=== PATIENT | female | born 1995 | race African-American/Black ===

== ENCOUNTER 2017-08-23 03:34 | Outpatient (CLI) | payer MEDICAID ==
[2017-12-02 15:00] VITALS: BMI 43.2
== END 2017-08-23 04:55 | disposition home or self-care (01) ==
LOC: D.LDO 03:34
DX: O26.892 Other specified pregnancy related conditions, second trimester (principal); Z3A.27 27 weeks gestation of pregnancy; R10.9 Unspecified abdominal pain

== ENCOUNTER → 2017-09-29 16:22 | Outpatient (CLI) | payer MEDICAID ==
[~2017-09-29 16:22] MED LIST: BACTRIM DS TABL1 TAB PO; HYDROCODONE-APA1 TAB PO; IBUPROFEN600 MG PO; PERCOCET 10/3251 TA1 PO; PRENATAL COMPLE1 TAB PO
[2017-12-02 15:00] VITALS: BMI 43.2
== END | disposition home or self-care (01) ==
LOC: D.LDO 16:22
DX: O24.419 Gestational diabetes mellitus in pregnancy, unspecified control (principal); Z3A.32 32 weeks gestation of pregnancy

== ENCOUNTER → 2017-10-07 12:30 | Outpatient (CLI) | payer MEDICAID ==
[2017-12-02 15:00] VITALS: BMI 43.2
== END | disposition home or self-care (01) ==
LOC: D.LDO 12:30
DX: O24.419 Gestational diabetes mellitus in pregnancy, unspecified control (principal); Z3A.33 33 weeks gestation of pregnancy

== ENCOUNTER → 2017-10-09 13:25 | Outpatient (CLI) | payer MEDICAID ==
[2017-12-02 15:00] VITALS: BMI 43.2
== END | disposition home or self-care (01) ==
LOC: D.LDO 13:25
DX: O24.913 Unspecified diabetes mellitus in pregnancy, third trimester (principal); Z3A.33 33 weeks gestation of pregnancy

== ENCOUNTER → 2017-10-13 13:47 | Outpatient (CLI) | payer MEDICAID ==
[2017-12-02 15:00] VITALS: BMI 43.2
== END | disposition home or self-care (01) ==
LOC: D.LDO 13:47
DX: O24.419 Gestational diabetes mellitus in pregnancy, unspecified control (principal); Z3A.34 34 weeks gestation of pregnancy

== ENCOUNTER → 2017-10-15 12:31 | Outpatient (CLI) | payer MEDICAID ==
[2017-12-02 15:00] VITALS: BMI 43.2
== END | disposition home or self-care (01) ==
LOC: D.LDO 12:31
DX: O24.419 Gestational diabetes mellitus in pregnancy, unspecified control (principal); Z3A.34 34 weeks gestation of pregnancy

== ENCOUNTER → 2017-10-19 16:53 | Outpatient (CLI) | payer MEDICAID ==
[2017-12-02 15:00] VITALS: BMI 43.2
== END | disposition home or self-care (01) ==
LOC: D.LDO 16:53 → D.ER 16:53
DX: O26.893 Other specified pregnancy related conditions, third trimester (principal); Z3A.35 35 weeks gestation of pregnancy

== ENCOUNTER → 2017-10-20 16:34 | Outpatient (CLI) | payer MEDICAID ==
[2017-12-02 15:00] VITALS: BMI 43.2
== END | disposition home or self-care (01) ==
LOC: D.LDO 16:34
DX: O24.419 Gestational diabetes mellitus in pregnancy, unspecified control (principal); Z3A.35 35 weeks gestation of pregnancy

== ENCOUNTER → 2017-10-23 10:18 | Outpatient (CLI) | payer MEDICAID ==
[2017-12-02 15:00] VITALS: BMI 43.2
== END | disposition home or self-care (01) ==
LOC: D.LDO 10:18
DX: O24.419 Gestational diabetes mellitus in pregnancy, unspecified control (principal); Z3A.35 35 weeks gestation of pregnancy

== ENCOUNTER → 2017-10-27 10:19 | Outpatient (CLI) | payer MEDICAID ==
[2017-12-02 15:00] VITALS: BMI 43.2
== END | disposition home or self-care (01) ==
LOC: D.LDO 10:19
DX: O24.419 Gestational diabetes mellitus in pregnancy, unspecified control (principal); Z3A.36 36 weeks gestation of pregnancy

== ENCOUNTER → 2017-10-30 12:58 | Outpatient (CLI) | payer MEDICAID ==
[2017-12-02 15:00] VITALS: BMI 43.2
== END | disposition home or self-care (01) ==
LOC: D.LDO 12:58
DX: O24.419 Gestational diabetes mellitus in pregnancy, unspecified control (principal); Z3A.36 36 weeks gestation of pregnancy

== ENCOUNTER → 2017-11-03 14:40 | Outpatient (CLI) | payer MEDICAID ==
[2017-12-02 15:00] VITALS: BMI 43.2
== END | disposition home or self-care (01) ==
LOC: D.LDO 14:40
DX: O24.419 Gestational diabetes mellitus in pregnancy, unspecified control (principal); Z3A.37 37 weeks gestation of pregnancy

== ENCOUNTER → 2017-11-05 15:15 | Outpatient (CLI) | payer MEDICAID ==
[2017-12-02 15:00] VITALS: BMI 43.2
== END | disposition home or self-care (01) ==
LOC: D.LDO 15:15
DX: O24.419 Gestational diabetes mellitus in pregnancy, unspecified control (principal); Z3A.37 37 weeks gestation of pregnancy

== ENCOUNTER → 2017-11-06 14:52 | Outpatient (CLI) | payer MEDICAID ==
[2017-12-02 15:00] VITALS: BMI 43.2
== END | disposition home or self-care (01) ==
LOC: D.LDO 14:52
DX: O24.419 Gestational diabetes mellitus in pregnancy, unspecified control (principal); Z3A.37 37 weeks gestation of pregnancy

== ENCOUNTER → 2017-11-10 13:37 | Outpatient (CLI) | payer MEDICAID ==
[2017-12-02 15:00] VITALS: BMI 43.2
== END | disposition home or self-care (01) ==
LOC: D.LDO 13:37
DX: O26.893 Other specified pregnancy related conditions, third trimester (principal); Z3A.38 38 weeks gestation of pregnancy

== ENCOUNTER → 2017-11-13 14:00 | Outpatient (CLI) | payer MEDICAID ==
[2017-12-02 15:00] VITALS: BMI 43.2
== END | disposition home or self-care (01) ==
LOC: D.LDO 14:00
DX: O24.419 Gestational diabetes mellitus in pregnancy, unspecified control (principal); O36.8130 Decreased fetal movements, third trimester, not applicable or unspecified; Z3A.38 38 weeks gestation of pregnancy

== ENCOUNTER 2017-11-16 04:12 | Inpatient (IN) | payer MEDICAID ==
[2017-11-16] VITALS (9 sets, daily range): BP systolic 108–128; BP diastolic 56–64; Ht 175.3 cm; Wt 147.9 kg
[~2017-11-16] VITALS: Ht 175.3 cm; Wt 147.9 kg
[2017-11-16] MEDS ORDERED: PRENATAL COMPLE1 TAB PO (04:30)
[2017-11-16 05:47] LABS: HEMATOCRIT 32.5 % (36.0-48.0); HEMOGLOBIN 9.9 g/dL (12-16); MCH 23.9 pg (26.0-34.0); MCHC 30.5 g/dL (31.0-37.0); MCV 78.3 fL (80.0-100.0); MEAN PLATELET VOLUME 11.2 fL (7.4-10.4); RBC 4.15 10x6/uL (4.00-5.40); RDW 16.2 % (11.5-14.5); WBC 5.9 10x3/uL (4.8-10.8)
[2017-11-16 06:25] LABS: APPEARANCE SLT CLOUDY (CLEAR); BACTERIA MODERATE /hpf (NONE SEEN); BILIRUBIN NEGATIVE (NEGATIVE); COLOR YELLOW (YELLOW); EPITHELIAL CELLS 0-5 /hpf (0-5); GLUCOSE NEGATIVE (NEGATIVE); KETONE NEGATIVE (NEGATIVE); MUCUS >1+ /lpf (NONE SEEN); NITRITE NEGATIVE (NEGATIVE); PROTEIN NEGATIVE (NEGATIVE); RED CELLS - URINE 0-5 /hpf (0-5); SPECIFIC GRAVITY 1.015 (1.005-1.020)
[2017-11-16 17:21] LABS: BASOPHILS 0 % (0-2); EOSINOPHILS 0.1 % (0-7); HEMATOCRIT 30.4 % (36.0-48.0); HEMOGLOBIN 9.1 g/dL (12-16); IMMATURE GRANULOCYTES 0.1 % (0-5); MCH 23.5 pg (26.0-34.0); MCHC 29.9 g/dL (31.0-37.0); MCV 78.4 fL (80.0-100.0); MEAN PLATELET VOLUME 11.3 fL (7.4-10.4); MONOCYTES 7.5 % (2-11); NEUTROPHILS 76.3 % (40-80); PLATELET COUNT 157 10x3/uL (130-400); RBC 3.88 10x6/uL (4.00-5.40); RDW 15.8 % (11.5-14.5); WBC 7.2 10x3/uL (4.8-10.8)
[2017-11-17 06:52] LABS: BASOPHILS 0 % (0-2); EOSINOPHILS 0.2 % (0-7); HEMATOCRIT 28.7 % (36.0-48.0); HEMOGLOBIN 8.6 g/dL (12-16); IMMATURE GRANULOCYTES 0.2 % (0-5); LYMPHOCYTES 14.6 % (15-50); MCH 23.6 pg (26.0-34.0); MCV 78.8 fL (80.0-100.0); MEAN PLATELET VOLUME 10.2 fL (7.4-10.4); MONOCYTES 6.8 % (2-11); NEUTROPHILS 78.2 % (40-80); PLATELET COUNT 127 10x3/uL (130-400); RBC 3.64 10x6/uL (4.00-5.40); WBC 6.2 10x3/uL (4.8-10.8)
[2017-11-17 07:27] LABS: RAPID PLASMA REAGIN Non Reactive (Non Reactive)
[2017-11-17 08:30] VITALS: BP 118/70
[2017-11-17 19:20] VITALS: BP 118/61
[2017-11-17 23:09] VITALS: BP 119/53
[2017-11-18 03:25] VITALS: BP 121/77
[2017-11-18 07:48] VITALS: BP 122/64
[2017-11-18] MEDS ORDERED: PERCOCET 10/3251 TA1 PO (09:47)
[2017-11-18] MEDS ORDERED: IBUPROFEN600 MG PO (09:48)
== END 2017-11-18 13:40 | disposition home or self-care (01) | DRG 766 ==
LOC: D.LD 04:12
PROVIDERS: Obstetrics & Gynecology
PROC: 10D00Z1 Extraction of Products of Conception, Low, Open Approach (ICD-10-PCS; 2017-11-16)
PROC: 10907ZC Drainage of Amniotic Fluid, Therapeutic from Products of Conception, Via Natural or Artificial Opening (ICD-10-PCS; principal; 2017-11-16 11:00)
DX: O24.429 Gestational diabetes mellitus in childbirth, unspecified control (principal); Z3A.39 39 weeks gestation of pregnancy; Z37.0 Single live birth; O76 Abnormality in fetal heart rate and rhythm complicating labor and delivery; O33.9 Maternal care for disproportion, unspecified; O99.214 Obesity complicating childbirth; E66.01 Morbid (severe) obesity due to excess calories

== ENCOUNTER 2017-11-30 19:41 | Inpatient (IN) | payer MEDICAID ==
[~2017-11-30] VITALS: Ht 175.3 cm; Wt 132.9 kg
[~2017-11-30 19:41] MED LIST changes: -BACTRIM DS TABL1 TAB PO; -HYDROCODONE-APA1 TAB PO
[2017-11-30 20:30] LABS: BASOPHILS 0.1 % (0-2); EOSINOPHILS 0.2 % (0-7); HEMATOCRIT 31.8 % (36.0-48.0); HEMOGLOBIN 9.6 g/dL (12-16); IMMATURE GRANULOCYTES 0.1 % (0-5); LYMPHOCYTES 11.4 % (15-50); MCH 23.5 pg (26.0-34.0); MCHC 30.2 g/dL (31.0-37.0); MCV 77.8 fL (80.0-100.0); MEAN PLATELET VOLUME 10.4 fL (7.4-10.4); MONOCYTES 6.2 % (2-11); RBC 4.09 10x6/uL (4.00-5.40); RDW 15.8 % (11.5-14.5); WBC 9.9 10x3/uL (4.8-10.8)
[2017-11-30 20:33] LABS: PLATELET COUNT 313 10x3/uL (130-400)
[2017-11-30 20:44] LABS: ALBUMIN 2.8 g/dL (3.4-5.0); BILIRUBIN - TOTAL 0.43 mg/dL (0.2-1.3); CALCIUM 8.7 mg/dL (8.5-10.1); CARBON DIOXIDE 24.2 mmol/L (21.0-32.0); CREATININE - SERUM 1.1 mg/dL (0.6-1.3); POTASSIUM - SERUM 3.2 mmol/L (3.5-5.1); PROTEIN - SERUM 7.6 g/dL (6.4-8.2)
[2017-11-30 23:36] LABS: HEMATOCRIT 30.4 % (36.0-48.0); HEMOGLOBIN 9.5 g/dL (12-16); LYMPHOCYTES 15.3 % (15-50); MCH 24.1 pg (26.0-34.0); MCHC 31.3 g/dL (31.0-37.0); MEAN PLATELET VOLUME 9.6 fL (7.4-10.4); PLATELET COUNT 311 10x3/uL (130-400); RBC 3.95 10x6/uL (4.00-5.40); RDW 15.2 % (11.5-14.5); WBC 9.7 10x3/uL (4.8-10.8)
[2017-11-30 23:46] LABS: CALC OSMOLALITY 278 mosm/kg (275-300); CALCIUM 8.2 mg/dL (8.5-10.1); CARBON DIOXIDE 26.1 mmol/L (21.0-32.0); CHLORIDE - SERUM 105 mmol/L (98-107); CREATININE - SERUM 0.9 mg/dL (0.6-1.3); GLUCOSE 92 mg/dL (74-106); POTASSIUM - SERUM 3.5 mmol/L (3.5-5.1); SODIUM 140 mmol/L (136-145); UREA NITROGEN 12 mg/dL (7-18); eGFR NON AFRICAN AMERICAN 83 mL/min (90-120)
[2017-12-01] VITALS (12 sets, daily range): BP systolic 110–138; BP diastolic 56–72; BMI 43.3; BMI 43.2
[2017-12-01 06:45] LABS: BASOPHILS 0.1 % (0-2); EOSINOPHILS 0.5 % (0-7); HEMATOCRIT 29.2 % (36.0-48.0); HEMOGLOBIN 8.8 g/dL (12-16); IMMATURE GRANULOCYTES 0.4 % (0-5); MCH 23.9 pg (26.0-34.0); MCHC 30.1 g/dL (31.0-37.0); MEAN PLATELET VOLUME 10.2 fL (7.4-10.4); MONOCYTES 7.3 % (2-11); NEUTROPHILS 73.7 % (40-80); PLATELET COUNT 258 10x3/uL (130-400); RBC 3.68 10x6/uL (4.00-5.40); RDW 15.9 % (11.5-14.5)
[2017-12-01 06:47] LABS: MCV 79.3 fL (80.0-100.0)
[2017-12-01 07:17] LABS: ALBUMIN 2.3 g/dL (3.4-5.0); ALKALINE PHOSPHATASE 105 U/L (46-116); ALT (SGPT) 10 U/L (10-68); CALC OSMOLALITY 278 mosm/kg (275-300); CALCIUM 8.2 mg/dL (8.5-10.1); CARBON DIOXIDE 27.3 mmol/L (21.0-32.0); CHLORIDE - SERUM 105 mmol/L (98-107); CREATININE - SERUM 0.8 mg/dL (0.6-1.3); GLUCOSE 87 mg/dL (74-106); POTASSIUM - SERUM 3.6 mmol/L (3.5-5.1); PROTEIN - SERUM 6.7 g/dL (6.4-8.2); SODIUM 141 mmol/L (136-145); UREA NITROGEN 10 mg/dL (7-18); eGFR NON AFRICAN AMERICAN > 90 mL/min (90-120)
[2017-12-02 01:36] VITALS: BP 119/52
[2017-12-02 07:50] VITALS: BP 105/59
[2017-12-02 15:00] VITALS: Ht 175.3 cm; Wt 132.9 kg
[2017-12-02 20:08] VITALS: BP 116/68
[2017-12-02 23:30] VITALS: BP 115/70
[2017-12-03 03:21] VITALS: BP 132/73
[2017-12-03 07:23] LABS: BASOPHILS 0.2 % (0-2); EOSINOPHILS 1.7 % (0-7); HEMOGLOBIN 8.9 g/dL (12-16); IMMATURE GRANULOCYTES 0.4 % (0-5); MCH 23.5 pg (26.0-34.0); MCHC 29.7 g/dL (31.0-37.0); MCV 79.2 fL (80.0-100.0); MEAN PLATELET VOLUME 10.4 fL (7.4-10.4); MONOCYTES 8.2 % (2-11); NEUTROPHILS 69.5 % (40-80); RBC 3.79 10x6/uL (4.00-5.40); RDW 15.9 % (11.5-14.5); WBC 4.7 10x3/uL (4.8-10.8)
[2017-12-03 07:28] LABS: PLATELET COUNT 318 10x3/uL (130-400)
[2017-12-03 07:48] LABS: ALBUMIN 2.3 g/dL (3.4-5.0); ANION GAP 13.5 mmol/L (8-16); BILIRUBIN - TOTAL 0.24 mg/dL (0.2-1.3); CALCIUM 8.4 mg/dL (8.5-10.1); CARBON DIOXIDE 26.1 mmol/L (21.0-32.0); CREATININE - SERUM 1.8 mg/dL (0.6-1.3); POTASSIUM - SERUM 4.6 mmol/L (3.5-5.1)
[2017-12-03 08:40] VITALS: BP 127/86
[2017-12-03 13:00] VITALS: BP 126/82
[2017-12-03] MEDS ORDERED: HYDROCODONE-APA1 TAB PO (13:07)
[2017-12-03] MEDS ORDERED: BACTRIM DS TABL1 TAB PO (13:07)
== END 2017-12-03 15:15 | disposition home health service (06) | DRG 776 ==
LOC: D.ER 19:41 → D.SDCHOLD 22:48 → D.WS 22:48
PROVIDERS: Family Medicine; Obstetrics & Gynecology
PROC: 0J983ZZ Drainage of Abdomen Subcutaneous Tissue and Fascia, Percutaneous Approach (ICD-10-PCS; principal; 2017-12-01)
DX: O90.2 Hematoma of obstetric wound (principal); O99.215 Obesity complicating the puerperium; O86.0 Infection of obstetric surgical wound

== ENCOUNTER → 2020-06-01 15:05 | Outpatient (CLI) | payer MEDICAID ==
[2017-12-02 15:00] VITALS: BMI 43.2
[~2020-06-01 15:05] MED LIST changes: +BACTRIM DS TABL1 TAB PO; +HYDROCODONE-APA1 TAB PO
== END | disposition home or self-care (01) ==
LOC: D.LDO 15:05
PROVIDERS: ATTEND Obstetrics & Gynecology
DX: O24.419 Gestational diabetes mellitus in pregnancy, unspecified control (principal); Z3A.00 Weeks of gestation of pregnancy not specified

== ENCOUNTER 2020-06-12 14:13 | Outpatient (CLI) | payer MEDICAID ==
[2017-12-02 15:00] VITALS: BMI 43.2
== END 2020-06-12 15:52 | disposition home or self-care (01) ==
LOC: D.LDO 14:13
PROVIDERS: ATTEND Obstetrics & Gynecology
DX: O24.419 Gestational diabetes mellitus in pregnancy, unspecified control (principal)

== ENCOUNTER 2020-06-19 16:25 | Outpatient (CLI) | payer MEDICAID ==
[2017-12-02 15:00] VITALS: BMI 43.2
--- NOTE | 2020-06-19 17:51 | NUR ---
WAS CALLED IN FOR BPP. WHEN I ARRIVED DOWNSTAIRS IN L/D, PT HAD JUST LEFT AMA. EXAM CANCELLED. MACEY BLOOD
== END 2020-06-19 17:39 | disposition left against medical advice (07) ==
LOC: D.LDO 16:25
PROVIDERS: ATTEND Obstetrics & Gynecology
DX: O24.419 Gestational diabetes mellitus in pregnancy, unspecified control (principal)

== ENCOUNTER 2020-06-22 05:36 | Inpatient (IN) | payer MEDICAID ==
[~2020-06-22] VITALS: Ht 175.3 cm; Wt 146.5 kg
[2020-06-22] VITALS (20 sets, daily range): BP systolic 95–133; BP diastolic 55–71; Ht 175.3 cm; Wt 146.5 kg
[2020-06-22] MEDS ORDERED: GLYBURIDE1.25 MG PO (06:24)
[2020-06-22 07:25] LABS: HEMATOCRIT 43.5 % (36.0-48.0); HEMOGLOBIN 13.5 g/dL (12-16); MCH 24.7 pg (26.0-34.0); MCV 79.7 fL (80.0-100.0); RBC 5.46 10x6/uL (4.00-5.40); RDW 14.8 % (11.5-14.5); WBC 5.9 10x3/uL (4.8-10.8)
[2020-06-22 07:42] LABS: BILIRUBIN NEGATIVE (NEGATIVE); KETONE NEGATIVE (NEGATIVE); NITRITE NEGATIVE (NEGATIVE); UROBILINOGEN 4 mg/dL (NORMAL)
[2020-06-22 07:44] LABS: BACTERIA MANY /hpf (NONE SEEN); RED CELLS - URINE OCC /hpf (0-5); WHITE CELLS - URINE 0-5 /hpf (0-5)
[2020-06-22 08:08] LABS: UDS - AMPHET NEGATIVE QUAL (NEGATIVE); UDS - BARB NEGATIVE QUAL (NEGATIVE); UDS - BENZO NEGATIVE QUAL (NEGATIVE); UDS - COCAINE NEGATIVE QUAL (NEGATIVE); UDS - OPIATE NEGATIVE QUAL (NEGATIVE); UDS - PCP NEGATIVE QUAL (NEGATIVE); UDS - THC NEGATIVE QUAL (NEGATIVE)
--- NOTE | 2020-06-22 09:13 | NUR ---
LIVE BABY GIRL @ [id number]
--- NOTE | 2020-06-22 10:35 | NUR ---
PT ARRIVED TO ROOM VIA BED WITH PACU NURSE. BEDSIDE REPORT RECIEVED. PT S/P REPEAT C/S. AAOX3. LUNGS CTAB. ABDOMEN SOFT AND TENDER WITH PALPATION. UNABLE TO PALPATE UTERUS R/T MATERNAL ADIPOSITY AND PAIN. LOWER ABDOMINAL DRESSING IN PLACE, C/D/I. ROJAS IN PLACE AND DRAINING CONCENTRATED YELLOW URINE. SCD'S IN PLACE BILATERALLY. PITOCIN SET TO INFUSE VIA PUMP AT 500CC/HR. DILAUDID MOTOR HOME ELECTRICAL FOREMAN INITIATED. 18G IV IN RIGHT HAND WITH NO REDNESS OR EDEMA NOTED TO SITE. PT RATES PAIN 8/10, MOTOR HOME ELECTRICAL FOREMAN BOLUS PROVIDED. ICE PACK TO ABDOMEN PROVIDED. PT DENIES ANY FURTHER NEEDS AT THIS TIME. WILL CONT TO MONITOR PT STATUS.
--- NOTE | 2020-06-22 11:06 | NUR ---
PT RESTING IN BED IN NO ACUTE DISTRESS. PT HOLDING . PT DENIES ANY NEEDS AT THIS TIME. BED IN LOW POSITION, SIDE RAILS UP TIMES 2, CALL LIGHT AND PHONE IN REACH. WILL CONT TO MONITOR PT STATUS.
--- NOTE | 2020-06-22 12:50 | NUR ---
PT RESTING IN BED IN NO ACUTE DISTRESS. PT DENIES ANY NEEDS AT THIS TIME. BED IN LOW POSITION, SIDE RAILS UP TIMES 2, CALL LIGHT AND PHONE IN REACH. WILL CONT TO MONITOR PT STATUS.
--- NOTE | 2020-06-22 14:17 | NUR ---
SARINA CARE PERFORMED. CHUX AND UNDERPAD CHANGED. PT TURNED AND SUPPORTED TO RIGHT LATERAL POSITION, SUPPORTED WITH PILLOWS.
[2020-06-22 15:54] LABS: BASOPHILS 0 % (0-2); EOSINOPHILS 0.1 % (0-7); IMMATURE GRANULOCYTES 0.2 % (0-5); LYMPHOCYTES 13.8 % (15-50); MCH 24.7 pg (26.0-34.0); MCHC 30.8 g/dL (31.0-37.0); MCV 80.4 fL (80.0-100.0); MEAN PLATELET VOLUME 10.8 fL (7.4-10.4); MONOCYTES 5.3 % (2-11); NEUTROPHILS 80.6 % (40-80); PLATELET COUNT 143 10x3/uL (130-400); RDW 14.8 % (11.5-14.5)
[2020-06-22 16:01] LABS: HEMATOCRIT 31.2 % (36.0-48.0); HEMOGLOBIN 9.6 g/dL (12-16); RBC 3.88 10x6/uL (4.00-5.40); WBC 8.5 10x3/uL (4.8-10.8)
--- NOTE | 2020-06-22 16:15 | NUR ---
SARINA CARE PERFORMED. CHUX AND SARINA PAD CHANGED. BARRY DOMINGUEZ SCANT. PT TURNED AND SUPPORTED TO LEFT TILT. PT DENIES ANY NEEDS AT THIS TIME.
--- NOTE | 2020-06-22 16:29 | MORECARE ---
CASE MANAGEMENT DISCHARGE SUMMARY PATIENT: NIKI BORJA UNIT: [id number] ADM DATE: 06/22/20 AGE: 24 : 95 SEX: F ROOM/BED: D.1221 AUTHOR: ERICA LOPEZ PHYSICIAN: REFERRING PHYSICIAN: ARIS BARAHONA MD DATE OF SERVICE: 06/22/20 Discharge Plan Patient Name: NIKI [facility]ORJA [facility] : 1995 Planned Disposition: Home Anticipated Discharge Date: Discharge Date: Expected LOS: Initial Reviewer: [email or web address] Initial Review Date: 06/22/2020 Generated: 06/22/20 5:28 pm Patient Name: NIKI BORJA Page 44817 at 1629 All edits/amendments must be made on the electronic document DICTATION DATE: 06/22/208 UX RESEARCHER: DONNIE 06/22/208 RPT#: [id number] DC DATE: STATUS: ADM IN [facility] [address] [place] [address] END OF REPORT
--- NOTE | 2020-06-22 16:38 | MORECARE ---
CASE MANAGEMENT DISCHARGE SUMMARY PATIENT: NIKI BORJA UNIT: [id number] ADM DATE: 06/22/20 AGE: 24 : 95 SEX: F ROOM/BED: D.1274 AUTHOR: ERICA LOPEZ PHYSICIAN: REFERRING PHYSICIAN: ARIS BARAHONA MD DATE OF SERVICE: 06/22/20 Discharge Plan Patient Name: NIKI BORJA [facility] : 1995 Planned Disposition: Home Anticipated Discharge Date: 06/26/20 Discharge Date: Expected LOS: 4 Initial Reviewer: [email or web address] Initial Review Date: 06/22/2020 Generated: 06/22/20 5:37 pm Last DP export: 06/22/20 3:29 p Patient Name: NIKI BORJA Page [phone] at 1638 All edits/amendments must be made on the electronic document DICTATION DATE: 06/22/20 1638 GRAIN PROCESSOR: DONNIE 06/22/20 1638 RPT#: [id number] DC DATE: STATUS: ADM IN [facility] [address] [place] [address] END OF REPORT
--- NOTE | 2020-06-22 16:42 | NUR ---
PT TRANSFERED VIA BED TO ROOM 1274. BEDSIDE REPORT GIVEN TO Florence SOUZA RN.
--- NOTE | 2020-06-22 16:46 | MORECARE ---
CASE MANAGEMENT DISCHARGE SUMMARY PATIENT: NIKI BORJA UNIT: [id number] ADM DATE: 06/22/20 AGE: 24 : 95 SEX: F ROOM/BED: D.1274 AUTHOR: ERICA LOPEZ PHYSICIAN: REFERRING PHYSICIAN: ARIS BARAHONA MD DATE OF SERVICE: 06/22/20 Discharge Plan Patient Name: NIKI BORJA [facility] : 1995 Planned Disposition: Home Anticipated Discharge Date: 06/26/20 Discharge Date: Expected LOS: 4 Initial Reviewer: [email or web address] Initial Review Date: 06/22/2020 Generated: 06/22/20 5:46 pm Last DP export: 06/22/20 3:38 p Patient Name: NIKI BORJA Page 38700 at 1646 All edits/amendments must be made on the electronic document DICTATION DATE: 06/22/201645 TOOL STORAGE ATTENDANT: DONNIE 06/22/201645 RPT#: [id number] DC DATE: STATUS: ADM IN [facility] [address] [place] [address] END OF REPORT
--- NOTE | 2020-06-22 17:13 | NUR ---
PT LYING TILTED TO LEFT SIDE IN BED. HOLDS WITH MUCH WARMTH SHOWN. PT REQUESTS AND RECEIVES ICE WATER AND CUP OF ICE. PT INSTRUCTED ON USE OF INCENTIVE SPIROMETER. DEMONSTRATES UNDERSTANDING; PULLS 1700.
--- NOTE | 2020-06-22 18:24 | NUR ---
PERICARE DONE. PERIPADS CHANGED WITH SMALL AMT OF RUBRA LOCHIA NOTED. PT REPOSITIONS TO RIGHT SIDE. PROPPED WITH PILLOW. ROJAS SECURED TO RIGHT LEG. 110 ML OF MOHAMUD COLORED URINE NOTED IN BAG. PT PROVIDED ICE WATER AND ENCOURAGED TO CONSUME MUCH TOLERATED.
--- NOTE | 2020-06-22 19:03 | NUR ---
SHIFT ASSESSMENT COMPLETED, SEE FLOWSHEET. PATIENT LYING FLAT IN A RIGHT TILT, PILLOW BEHIND BACK FOR COMFORT. BLEEDING SMALL,RUBRA, NO CLOTS NOTED. PAD CHANGED.
--- NOTE | 2020-06-22 20:00 | NUR ---
ICE WATER PROVIDED PER PT REQUEST. NO FURTHER NEEDS IDENTIFIED.
--- NOTE | 2020-06-22 20:56 | NUR ---
1000ML NS WITH 20 UNITS OF PITOCIN HUNG VIA ALARIS PUMP @125 ML/HR. SALES OFFICE MANAGER VIAL CHANGED AT THIS TIME, SEE EMAR.
--- NOTE | 2020-06-22 21:50 | NUR ---
PERICARE DONE, BLEEDING SMALL, RUBRA, ONE NICKEL SIZED CLOT NOTED. CLEAN PADS PLACED. PATIENT TURNED MORE TO THE RIGHT SIDE PER REQUEST, PILLOW PLACED FOR COMFORT. PT DENIES OTHER NEEDS, INFANT REMAINS IN OPEN CRIB AT BEDSIDE. WILL CONTINUE TO MONITOR.
--- NOTE | 2020-06-22 23:45 | NUR ---
TORADOL ADMINISTERED PER MD ORDERS, SEE EMAR. PERICARE DONE, BLEEDING SMALL RUBRA, NO CLOTS NOTED. CLEAN PAD PLACED. FAN PROVIDED PER PT REQUEST, NO FURTHER NEEDS IDENTIFIED. WILL CONTINUE TO MONITOR
--- NOTE | 2020-06-23 01:02 | NUR ---
INFANT TO NURSERY PER MOTHERS REQUEST
--- NOTE | 2020-06-23 03:15 | NUR ---
INFANT TO ROOM VIA OPEN CRIB BY NURSERY NURSE AT THIS TIME. MOTHER RECEIVED IN HER ARMS TO FEED. NO NEEDS IDENTIFIED. WILL CONTINUE TO MONITOR.
--- NOTE | 2020-06-23 04:38 | NUR ---
1000ml ns with pitocin hung and infusing via alaris pump at 125ml/hr. Pt holding infant. no needs identified at this time, will continue to monitor.
[2020-06-23 06:10] LABS: RAPID PLASMA REAGIN Non Reactive (Non Reactive)
--- NOTE | 2020-06-23 06:20 | NUR ---
PERICARE DONE, TWO DIME SIZED CLOTS NOTED, BLEEDING REMAINS SMALL/RUBRA. CLEAN PADS PLACED. ROJAS EMPTIED OF 600ML URINE. NO FURTHER NEEDS IDENTIFIED. WILL CONTINUE TO MONITOR.
--- NOTE | 2020-06-23 06:33 | NUR ---
LAB AT BEDSIDE FOR AM DRAW.
[2020-06-23 06:50] LABS: BASOPHILS 0 % (0-2); EOSINOPHILS 0.2 % (0-7); HEMATOCRIT 31.3 % (36.0-48.0); HEMOGLOBIN 9.6 g/dL (12-16); IMMATURE GRANULOCYTES 0.2 % (0-5); MCH 24.6 pg (26.0-34.0); MCHC 30.7 g/dL (31.0-37.0); MCV 80.1 fL (80.0-100.0); MONOCYTES 4.7 % (2-11); NEUTROPHILS 80.9 % (40-80); PLATELET COUNT 124 10x3/uL (130-400); RBC 3.91 10x6/uL (4.00-5.40); RDW 14.8 % (11.5-14.5); WBC 6.4 10x3/uL (4.8-10.8)
[2020-06-23 07:30] VITALS: BP 118/55
--- NOTE | 2020-06-23 07:30 | NUR ---
PT LYING IN SEMI-DIAL'S POSITION IN BED. AWAKE. AAO X 3. VSS. HRRR WITHOUT AUDIBLE MURMUR. BBS CLEAR. STATES HAS NON-PRODUCTIVE COUGH. BS X 4. ABDOMEN SOFT/NON-DISTENDED. FUNDUS FIRM AT U/2. RUBRA LOCHIA SMALL AMT. NO CLOTS NOTED. ABDOMINAL DRESSING WITHOUT DRAINAGE NOTED. NEG HOMANS' SIGN. PPP. 1+/1+ NON-PITTING EDEMA NOTED TO BLE. SCDS ON BLE. PUMP ON. ROJAS TO GRAVITY DRAINING MOHAMUD COLORED URINE. PT C/O INCISIONAL PAIN OF "5" ON 0-10 PAIN SCALE. TORADOL 30 MG GIVEN SIVP OVER 2 MINUTES. PT INSTRUCTED ON MED. VERBALIZES UNDERSTANDING. SR UP X 2. CALL LIGHT IN REACH.
--- NOTE | 2020-06-23 08:56 | NUR ---
PT LYING TO RIGHT SIDE IN BED. VISITS WITH MOTHER. DENIES C/O OR NEEDS.
--- NOTE | 2020-06-23 09:09 | NUR ---
DR BARAHONA NOTIFIED OF LAB RESULTS AND PT READY TO ADVANCE DIET AND AMBULATE. ORDERS RECEIVED. STATES HERMOSILLO COVERING ON PATIENT NOW.
--- NOTE | 2020-06-23 09:20 | NUR ---
PIV CONVERTED TO SALINE LOCK. FLUSHES EASILY WITH 10 ML NS. SITE CLEAR. ROJAS DC'D WITH 150 ML MOHAMUD COLORED URINE NOTED IN BAG. PT OOB AND AMB TO BR. VOIDS SMALL AMT OF BLOOD-TINGED URINE. PERICARE DONE. PANTIES AND PAD ON. PT AMB BACK TO BED. JING ACTIVITY WELL.
--- NOTE | 2020-06-23 09:37 | NUR ---
DR HERMOSILLO VISITS WITH PT.
--- NOTE | 2020-06-23 11:24 | NUR ---
PT C/O INCISIONAL PAIN AND ITCHING. BENADRYL 50 MG AND NORCO 10/325 GIVEN PO ORDERED. PT RATES PAIN "6" ON 0-10 PAIN SCALE. PT INSTRUCTED ON MEDS. VERBALIZES UNDERSTANDING.
--- NOTE | 2020-06-23 12:30 | NUR ---
PT LYING TO RIGHT SIDE IN BED. EYES CLOSED. RESP NON-LABORED. PT NOT DISTURBED TO ALLOW FOR REST. SR UP X 2. CALL LIGHT IN REACH.
--- NOTE | 2020-06-23 13:55 | NUR ---
PT OOB AND AMB TO BR. VOIDS 300 ML OF MOHAMUD COLORED URINE. PERICARE DONE PER PT. PANTIES AND PAD ON. PT AMB BACK TO BED. C/O INCISIONAL PAIN/PRESSURE. MOTRIN 600 MG GIVEN PO ORDERED. PT INSTRUCTED ON MED. VERBALIZES UNDERSTANDING.
--- NOTE | 2020-06-23 15:10 | NUR ---
PT LYING TO RIGHT SIDE IN BED. WAKES UPON ENTERING ROOM. DENIES C/O OR NEEDS.
[2020-06-23 16:13] VITALS: BP 109/66
--- NOTE | 2020-06-23 16:17 | NUR ---
VSS. PT C/O INCISIONAL PAIN/PRESSURE OF "5" ON 0-10 PAIN SCALE. NORCO 10/325 GIVEN PO. PT ALSO C/O GAS PAIN AND URGE TO PASS GAS. PT GIVEN MYLICON 80 MG CHEW TAB. PT ENCOURAGED TO AMBULATE IN HALLS. VERBALIZES UNDERSTANDING.
--- NOTE | 2020-06-23 17:18 | NUR ---
300 ML OF CONCENTRATED URINE NOTED IN SPECIPAN.
--- NOTE | 2020-06-23 17:40 | NUR ---
PT AMBULATORY IN HALLS. JING ACTIVITY WELL.
--- NOTE | 2020-06-23 18:00 | NUR ---
PT AMBULATORY BACK TO ROOM. PT BACK TO BED. STATES "I WANT TO GET A NAP BEFORE I SHOWER".
--- NOTE | 2020-06-23 18:45 | NUR ---
REPORT RECEIVED FROM SHANIQUA CLEMONS TO ASSUME CARE. PT IS TAKING A NAP.
--- NOTE | 2020-06-23 19:30 | NUR ---
PATIENT ASSISTED UP TO SHOWER AT THIS TIME, TOWELS,WASH RAGS, SOAP/SHAMPOO,TOOTHBRUSH,TOOTHPASTE, PADS,PANTIES,GOWN AND SOCKS PROVIDED. PTS SISTER REMAINS IN ROOM WITH . PT ENCOURAGED TO CALL WITH NEEDS. BED LINENS CHANGED AND FRESH ICE WATER PROVIDED. WILL CONTINUE TO MONITOR
--- NOTE | 2020-06-23 20:13 | NUR ---
NORCO AND BENADRYL ADMINISTERED, SEE EMAR.
[2020-06-23 20:16] VITALS: BP 115/59
--- NOTE | 2020-06-23 22:15 | NUR ---
PATIENT SLEEPING ON LEFT SIDE, RESPIRATIONS EVEN AND NON LABORED. NO DISTRESS NOTED. WILL CONTINUE TO MONITOR. PTS SISTER REMAINS AT BEDSIDE WITH
--- NOTE | 2020-06-24 00:19 | NUR ---
PATIENT SITTING UP IN BED HOLDING INFANT. PAIN MEDICATION ADMINISTERED PER PT REQUEST, SEE EMAR.
--- NOTE | 2020-06-24 02:22 | NUR ---
INFANT TO NURSERY VIA OPEN CRIB, PT DENIES NEEDS. WILL CONTINUE TO MONITOR.
--- NOTE | 2020-06-24 03:18 | NUR ---
INFANT TO MOMS ROOM VIA OPEN CRIB, ID VERIFIED.
--- NOTE | 2020-06-24 03:55 | NUR ---
MOTRIN ADMINISTERED PER PT REQUEST, SEE EMAR.
--- NOTE | 2020-06-24 05:19 | NUR ---
NORCO ADMINISTERED PER MD ORDERS, SEE EMAR
--- NOTE | 2020-06-24 06:45 | NUR ---
PT SITTING UP IN BED WITH EYES CLOSED, NO DISTRESS NOTED. WILL CONTINUE TO MONITOR.
[2020-06-24 07:48] VITALS: BP 109/58
--- NOTE | 2020-06-24 07:48 | NUR ---
RECEIVED PT LYING TO RIGHT SIDE IN BED. CARING FOR . AWAKE. VSS. HRRR WITHOUT AUDIBLE MURMUR. BBS CLEAR. BS X 4. ABDOMEN SOFT. PT STATES PASSING GAS. NO BM YET. RUBRA LOCHIA SMALL AMT. PT STATES PASSED ONE SMALL CLOT THIS AM. ABDOMINAL INCISION WITH STEF. PERIPAD CHANGED. NO REDNESS, SWELLING OR DRAINAGE NOTED. PT INSTRUCTED ON CARING FOR INCISION. VERBALIZES UNDERSTANDING. NEG HOMANS' SIGN. PPP. 1+/1+ NON-PITTING EDEMA NOTED TO ANKLES/FEET. PT DENIES PAIN OR NEEDS. SR UP X2. CALL LIGHT IN REACH.
--- NOTE | 2020-06-24 08:50 | NUR ---
DR HERMOSILLO TO ROOM. VISITS WITH PT. ORDER RECEIVED TO DC HOME.
[2020-06-24] MEDS ORDERED: IBUPROFEN800 MG PO (09:02)
[2020-06-24] MEDS ORDERED: PERCOCET 5-3251 TAB PO (09:02)
--- NOTE | 2020-06-24 09:42 | NUR ---
PT C/O INCISIONAL PAIN OF "7" ON 0-10 PAIN SCALE. NORCO 10/325 AND MOTRIN 600 MG GIVEN PO ORDERED. PT INSTRUCTED ON MEDS. VERBALIZES UNDERSTANDING.
[2020-06-24] MEDS ORDERED: HYDROCODON-ACE1 EA10 PO (10:07)
[2020-06-24] MEDS ORDERED: MOTRIN600 MG PO (10:08)
--- NOTE | 2020-06-24 10:40 | NUR ---
PT SITTING UP IN BED. WATCHES TV. DENIES NEEDS OR C/O.
--- NOTE | 2020-06-24 12:00 | NUR ---
REGULAR DIET SERVED. PT STATES DOES NOT WANT MEAL. PT OFFERED TO CALL KITCHEN FOR SOMETHING ELSE. PT DECLINES.
--- NOTE | 2020-06-24 13:20 | NUR ---
PT SISTER REQUESTS NURSE TO ROOM. THIS NURSE TO ROOM. PT ASKS "WHY DO WE HAVE TO WAIT ON THE DOCTOR TO COME SEE HER (POINTS TO INFANT). PT AND PT SISTER INFORMED THAT PATIENTS CANNOT BE DISCHARGED WITHOUT A DR ORDER.
--- NOTE | 2020-06-24 14:00 | NUR ---
DISCHARGE INSTRUCTIONS GIVEN TO PT. PT VERBALIZES UNDERSTANDING OF ALL INSTRUCTIONS. COPIES GIVEN TO PT. PT GIVEN RX FOR NORCO AND MOTRIN. PT UP TO DRESS.
--- NOTE | 2020-06-24 14:01 | OP ---
PATIENT NAME: NIKI BORJA MEDICAL RECORD: [id number] :[birth year] LOCATION:[facility] D.1274 ADMISSION DATE:06/22/20 SURGEON: MICHEL BAIG MD DATE OF OPERATION: 06/22/2020 PREOPERATIVE DIAGNOSES: 1. Term intrauterine at 39 weeks. 2. A2 gestational diabetes. 3. History of previous section at 39 weeks. POSTOPERATIVE DIAGNOSES: 1. Term intrauterine at 39 weeks. 2. A2 gestational diabetes. 3. History of previous section at 39 weeks. PROCEDURE: A repeat low transverse section. SURGEON: Michel Baig MD ANESTHESIA: Regional via spinal. INTRAVENOUS FLUIDS: Per anesthesia records. SPECIMENS: Included placenta and cord for gases. FINDINGS: 1. Viable , Apgars 9 at 1 and 9 at 5. 2. Placenta delivered manually intact, 3-vessel cord. 3. Normal adnexa bilaterally. COMPLICATIONS: None apparent. PROCEDURE: The patient taken to the operating room where regional anesthesia was achieved without difficulty. The patient was then prepped and draped in normal sterile fashion in the dorsal supine position. SCDs were on and functioning normally. A West catheter was then placed and was draining freely. At this point, the abdomen was prepared by taping the pannus upwards towards the diaphragm and the patient was then reprepped following suspension of the pannus. A repeat Pfannenstiel skin incision was made, extended downward to the underlying subcutaneous fat to the level of the fascia. The fascia was then excised in the midline and extended bilaterally using the Sharma scissors and the Bovie cautery. The superior and inferior aspects of the fascial incision were grasped with Iker clamps times 2, tented upward, and sharply dissected from the underlying rectus muscle using the Bovie cautery and the Sharma scissors. The rectus muscles were then bluntly in the midline. Careful dissection in the midline was performed and the peritoneum was entered at the superior aspect of the incision. Multiple areas of adhesive disease between the rectus fascia and uterus were identified. Careful dissection was performed in the midline under direct palpation of the bladder. Following dissection of the superior aspect of the incision, several bands of adhesive disease were excised using the Metzenbaum scissors. Eventually, the anterior leaf of the broad ligament was identified and excised and the bladder was found to be deeply invested in the lower uterine segment. Bladder blade was then placed into the incision. A low transverse incision was made with a scalpel and extended using the Pelosi method. The vertex was found to be extended and a Kiwi suction OPERATIVE REPORT [id number] NIKI BORJA device was placed on the occiput of the fetus and the vertex was delivered atraumatically. Following delivery of the head, the vacuum was removed and the body was then delivered atraumatically as well. The infant was bulb suctioned upon delivery of the body. The cord was clamped times 2, cut, and the infant was handed to the awaiting nursery team. Cord was obtained for gases and the placenta was removed manually and intact. The uterus was exteriorized, cleared of all clots and debris and vigorously massaged. A good uterine tone was noted. Ring forceps were used to delineate the margins of the incision and uterine incision was repaired with 0 loop PDS times 2 in a running locked fashion. A third layer was used to oversew several areas of bleeding and good hemostasis was noted. The posterior cul-de-sac was then thoroughly irrigated and a lap band that had been previously placed into the abdomen was removed. The posterior cul-de-sac was then thoroughly irrigated and uterus was placed in the pelvis. Counts were correct times 2 for needles, sponges, and instruments. The fascia was repaired with 0 loop PDS times 1. Underlying subcutaneous tissue was then reapproximated using 0 plain gut suture in interrupted fashion. The skin incision then repaired with luis. The patient tolerated procedure well, transferred to postanesthesia recovery stable without incident. TRANSINT:[id number] Voice Confirmation ID: [id number] DOCUMENT ID: [id number] MICHEL BAIG MD at 1401 CC: [id number] DICTATION DATE: 06/22/20 1627 EDUCATION AND TRAINING MANAGER: 06/23/20 0254 ADM IN [facility] [id number] [place] [address]
--- NOTE | 2020-06-24 14:07 | NUR ---
NORCO 10/325 GIVEN PO ORDERED. PT INSTRUCTED ON MED. VERBALIZES UNDERSTANDING.
--- NOTE | 2020-06-24 14:20 | NUR ---
PT READY FOR DISCHARGE. DISCHARGED IN STABLE CONDITION WITH VIA WHEELCHAIR TO PRIVATE VEHICLE.
--- NOTE | 2020-06-25 08:07 | MORECARE ---
CASE MANAGEMENT DISCHARGE SUMMARY PATIENT: NIKI BORJA UNIT: [id number] ADM DATE: 06/22/20 AGE: 25 : [birth year] SEX: F ROOM/BED: D.1274 AUTHOR: ERICA LOPEZ PHYSICIAN: REFERRING PHYSICIAN: ARIS BARAHONA MD DATE OF SERVICE: 06/25/20 Discharge Plan Patient Name: [facility]IKI [facility]ORJA [facility] [facility] 1995 Planned Disposition: Home Anticipated Discharge Date: 06/26/20 Discharge Date: 06/24/2020 Expected LOS: 4 Initial Reviewer: [email or web address] Initial Review Date: 06/22/2020 Generated: 06/25/20 9:06 am Last DP export: 06/22/20 3:46 p Patient Name: NIKI BORJA Page [id number] at 0807 All edits/amendments must be made on the electronic document DICTATION DATE: 06/25/20805 TELEPHONE CLAIMS REPRESENTATIVE: DONNIE 06/25/20805 RPT#: [id number] DC DATE:06/24/20 STATUS: DIS IN [facility] [address] [place] [address] END OF REPORT
== END 2020-06-24 14:20 | disposition home or self-care (01) | DRG 788 ==
LOC: D.LD 05:36 → D.WS 05:36 → D.LD 05:36 → D.WS 10:07 → D.LD 16:38
PROVIDERS: ADMIT Obstetrics & Gynecology; ATTEND Obstetrics & Gynecology
PROC: 10D00Z1 Extraction of Products of Conception, Low, Open Approach (ICD-10-PCS; principal; 2020-06-22 07:30)
DX: O24.429 Gestational diabetes mellitus in childbirth, unspecified control (principal); Z3A.39 39 weeks gestation of pregnancy; Z37.0 Single live birth; O34.219 Maternal care for unspecified type scar from previous cesarean delivery; O40.3XX0 Polyhydramnios, third trimester, not applicable or unspecified